=== PATIENT | female | born 1955 | race Caucasian/White ===

== ENCOUNTER 2025-05-27 04:53 | Inpatient (IN) | payer MEDICARE, MEDICAID ==
[~2025-05-27] VITALS: Ht 162.6 cm; Wt 69.9 kg
[2025-05-27] VITALS (7 sets, daily range): BP systolic 113–151; BP diastolic 46–88; PULSE 60–97; RESP 13–63; TEMP 36.2–37.1; O2SAT 96–100
[2025-05-27] MEDS: MORPHINE SULFATE 4 MG/ML INJ (FOR IV/IM USE) IV ONE (06:14)
[2025-05-27 07:01] LABS: BASOPHILS % 0.5 % (0.0-2.0); EOSINOPHILS % 1.1 % (0.0-5.0); HEMATOCRIT. 40.7 % (36.0-48.0); HEMOGLOBIN. 13.2 g/dL (12.0-16.0); LYMPHOCYTES % 24.1 % (20.0-50.0); MEAN PLATELET VOLUME 7.7 fl (7.4-10.4); MONOCYTES % 6.9 % (2.0-8.0); NEUTROPHILS % 67.4 % (40.0-76.0); PLATELET 384 x1000/uL (130-400); RED BLOOD CELL COUNT 4.52 mill/uL (4.2-5.4); RED CELL DISTRIBUTION WIDTH 13.7 % (11.6-14.6)
[2025-05-27 07:13] LABS: CREATININE 0.7 mg/dL (0.6-1.0)
[2025-05-27 07:14] LABS: UREA NITROGEN BLOOD 9 mg/dL (9-23)
[2025-05-27 07:15] LABS: TROPONIN I HIGH SENSITIVITY < 4 ng/L (3.0-34)
[2025-05-27] MEDS ORDERED: HYDROCODONE/ACETAMINOPHEN 5/325MG TABLET PO PRN (08:00)
[2025-05-27] MEDS ORDERED: ZOLPIDEM TARTRATE 5MG TABLET PO PRN (08:00)
[2025-05-27] MEDS ORDERED: CLONIDINE 0.1MG TABLET PO PRN (08:00)
[2025-05-27] MEDS ORDERED: NALOXONE HCL 0.4MG/ML VIAL IV PRN (08:00)
[2025-05-27] MEDS: ONDANSETRON HCL 4MG/2ML INJ IV PRN (12:04)
[2025-05-27] MEDS: PANTOPRAZOLE SODIUM 40 MG/VIAL IV SCH (12:04)
[2025-05-27] MEDS: ENOXAPARIN 40MG/0.4ML SYR SUBCUT SCH (12:06)
[2025-05-27] MEDS: LEVOFLOXACIN 250MG TABLET PO SCH (19:46)
[2025-05-27] MEDS: METRONIDAZOLE 500MG TABLET PO SCH (22:30)
[2025-05-27] MEDS: MAGNESIUM/ALUMINUM HYDROXIDE/SIMETHICONE 30ML UDC PO PRN (22:30)
[2025-05-28] VITALS: BP 112/62; PULSE 77; RESP 16; TEMP 36.8; O2SAT 95
[2025-05-28 04:00] VITALS: BP 117/50; PULSE 78; RESP 16; TEMP 36.9; O2SAT 96
[2025-05-28] MEDS: ACETAMINOPHEN 325MG TABLET PO PRN (05:08)
[2025-05-28 06:18] LABS: BASOPHILS % 0.4 % (0.0-2.0); EOSINOPHILS % 0.7 % (0.0-5.0); HEMATOCRIT. 41.4 % (36.0-48.0); HEMOGLOBIN. 13.7 g/dL (12.0-16.0); LYMPHOCYTES % 20.5 % (20.0-50.0); MEAN PLATELET VOLUME 7.7 fl (7.4-10.4); MONOCYTES % 7.2 % (2.0-8.0); NEUTROPHILS % 71.2 % (40.0-76.0); PLATELET 376 x1000/uL (130-400); RED BLOOD CELL COUNT 4.66 mill/uL (4.2-5.4); RED CELL DISTRIBUTION WIDTH 13.6 % (11.6-14.6)
[2025-05-28 06:30] LABS: CREATININE 0.8 mg/dL (0.6-1.0)
[2025-05-28 06:31] LABS: UREA NITROGEN BLOOD 8 mg/dL (9-23)
[2025-05-28 07:06] LABS: HEPATITIS A AB IGM NEGATIVE (Negative)
[2025-05-28 07:07] LABS: HEPATITIS B CORE AB IGM NEGATIVE (Negative); HEPATITIS C AB NON REACTIVE (Neg) (Negative)
[2025-05-28 08:00] VITALS: BP 113/52; PULSE 69; RESP 16; TEMP 36.5; O2SAT 95
[2025-05-28 11:10] LABS: ASPARTATE AMINOTRANSFERASE 21 IU/L (<34)
[2025-05-28 12:00] VITALS: BP 129/69; PULSE 78; RESP 18; TEMP 36.3; O2SAT 98
[2025-05-28] MEDS: POLYETHYLENE GLYCOL 3350 (17GM) 1 DOSE PACK PO SCH (13:59)
[2025-05-28] MEDS: DOCUSATE SODIUM 250MG CAPSULE PO SCH (13:59)
[2025-05-28 16:00] VITALS: BP 118/58; PULSE 70; RESP 16; TEMP 36.7; O2SAT 95
[2025-05-28] MEDS ORDERED: METR-167 PO (18:56)
[2025-05-28] MEDS ORDERED: OMEP40CA20 MT (18:56)
[2025-05-28] MEDS ORDERED: ONDA-239 PO (18:56)
[2025-05-28 19:22] VITALS: BP 118/58; PULSE 72; RESP 16; TEMP 98
[2025-06-01 10:07] LABS: HBSAG CONFIRMATION Positive (.); HBSAG SCREEN Confirm. indicated (Negative)
== END 2025-05-28 19:30 | disposition home or self-care (01) | DRG 372 ==
LOC: ER 04:53 → EDBEDREQTM 07:26 → EDBEDREQ 07:26 → 5WST 07:50 → ENRESERV 08:14
PROVIDERS: ADMIT Internal Medicine; ATTEND Internal Medicine
DX: A04.9 Bacterial intestinal infection, unspecified (principal); J98.11 Atelectasis; I20.9 Angina pectoris, unspecified; A08.4 Viral intestinal infection, unspecified; K21.9 Gastro-esophageal reflux disease without esophagitis; K59.00 Constipation, unspecified; E11.9 Type 2 diabetes mellitus without complications; I51.7 Cardiomegaly; Z79.899 Other long term (current) drug therapy
CPT/HCPCS: 36415; 71045; 80048; 84450; 84460; 84484; 85025; 86705; 86709; 87015; 87045; 87177; 87209; 87340; 87427; 87449; 89055; 93005; 93970; 96372; 96374; 96375; 99285; J1650; J2270; J2405; J2470